=== PATIENT | female | born 1995 | race Caucasian/White ===

== ENCOUNTER 2016-12-25 05:52 | Emergency (ER) | payer OTHER ==
[~2016-12-25] VITALS: Ht 177.8 cm; Wt 90.8 kg
[~2016-12-25 05:52] MED LIST: TRAM50TA PO
[2016-12-25 05:54] VITALS: BP 135/75; PULSE 98; RESP 18; TEMP 99; O2SAT 99
[2016-12-25 06:10] LABS: BLOOD, URINE NEG (NEG); GLUCOSE,URINE NEG (NEG); KETONE, URINE NEG (NEG); NITRITE,URINE NEG (NEG)
[2016-12-25 06:17] LABS: RBC, URINE 0-2 /hpf (0-3); URINE COLOR YELLOW (YELLW/STRAW)
[2016-12-25 06:18] LABS: COMMENT (UR) CULT NOT INDICATED; CULTURE IF INDICATED CULT NOT INDICATED
--- NOTE | 2016-12-25 06:23 | PD ---
HPI Chief Complaint: Abdominal Pain Time Seen by Provider: 05:59 Travel History International Travel<30 days: No Contact w/Intl Traveler<30days: No Traveled to known affect area: No History of Present Illness HPI The patient is a 21-year-old female, G3, P3, A0 who complains of left pelvic pain since last night. She denies any nausea, vomiting or diarrhea. She denies any fever. She denies any dysuria, frequency or urgency. Her last menstrual period was 16 December and she has had irregular periods, this period was extremely light. Her pain is 7/10, constant and a pressure sensation, not sharp pain. It kept her from sleeping tonight. She states she has never had a pain like this before. [facility] Past Medical History Medical History: Denies Significant Hx Diminished Hearing: No Tetanus Vaccination: > 5 Years Influenza Vaccination: Yes ?: Not LMP: 12/16/16 : 2 Para: 2 Past Surgical History Surgical History: No Previous Surgery Social History Alcohol Use: No Tobacco Use: No Substance Use: Yes Allergies-Medications (Allergen,Severity, Reaction): Coded Allergies: No Known Allergies (Unverified Adverse Reaction, Unknown, 12/25/16) Reported Meds & Prescriptions Reported Meds & Active Scripts Active No Active Prescriptions or Reported Medications Review of Systems Except as stated in HPI: all other systems reviewed are Neg Physical Exam Narrative GENERAL: The patient is alert, oriented 3 in minimal apparent distress with her left pelvic pain. SKIN: Focused skin assessment warm/dry. HEAD: Atraumatic. Normocephalic. EYES: Pupils equal and round. No scleral icterus. No injection or drainage. ENT: No nasal bleeding or discharge. Mucous membranes pink and moist. NECK: Trachea midline. No JVD. CARDIOVASCULAR: Regular rate and rhythm. No murmur appreciated. RESPIRATORY: No accessory muscle use. Clear to auscultation. Breath sounds equal bilaterally. GASTROINTESTINAL: Abdomen soft, non-tender, nondistended. Hepatic and splenic margins not palpable. MUSCULOSKELETAL: No obvious deformities. No clubbing. No cyanosis. No edema. NEUROLOGICAL: Awake and alert. No obvious cranial nerve deficits. Motor grossly within normal limits. Normal speech. PSYCHIATRIC: Appropriate mood and affect; insight and judgment normal. GENITOURINARY: Normal external genitalia without lesions or erythema. Vaginal vault without blood but there is an off white drainage. Cervical os was closed , there is considerable ectopy on the cervix with greenish white drainage. There is cervical motion tenderness. Uterus tender and nonenlarged. The right adnexa nontender without masses. The left adnexa is exquisitely tender. Data Data Last Documented VS Vital Signs Date Time Temp Pulse Resp B/P (MAP) Pulse Ox O2 Delivery O2 Flow Rate FiO2 12/25/16 06:45 84 18 117/67 (84) 98 Room Air 12/25/16 05:54 99.0 Orders Orders Urinalysis - C+S If Indicated (12/25/16 05:59) Ed Urine Pregnancytest Poc (12/25/16 05:59) Beta Hcg (Quant/Titer) (12/25/16 06:23) Complete Blood Count With Diff (12/25/16 06:23) Comprehensive Metabolic Panel (12/25/16 06:23) Gc And Chlamydia Pcr (12/25/16 06:23) Wet Prep Profile (12/25/16 06:23) Sodium Chloride 0.9% Flush (Ns Flush) (12/25/16 06:30) Ct Abd/Pel W Iv Contrast(Rout) (12/25/16 06:37) Labs Laboratory Tests Test 12/25/16 06:00 12/25/16 06:36 12/25/16 06:39 Urine Color YELLOW Urine Turbidity CLEAR Urine pH 6.0 Urine Specific [place] 1.022 Urine Protein NEG mg/dL Urine Glucose (UA) NEG mg/dL Urine Ketones NEG mg/dL Urine Occult Blood NEG Urine Nitrite NEG Urine Bilirubin NEG Urine Leukocyte Esterase TRACE Urine RBC 0-2 /hpf Urine WBC 3-5 /hpf Urine Squamous Epithelial Cells 6-8 /hpf Urine Bacteria NONE /hpf Microscopic Urinalysis Comment CULT NOT INDICATED Clue Cells (Wet Prep) NONE SEEN Vaginal Trichomonas (Wet Prep) NONE SEEN Vaginal Yeast (Wet Prep) NONE SEEN White Blood Count 12.3 TH/MM3 Red Blood Count 5.31 MIL/MM3 Hemoglobin 14.5 GM/DL Hematocrit 43.6 % Mean Corpuscular Volume 82.1 FL Mean Corpuscular Hemoglobin 27.2 PG Mean Corpuscular Hemoglobin Concent 33.2 % Red Cell Distribution Width 11.7 % Platelet Count 269 TH/MM3 Mean Platelet Volume 8.8 FL Neutrophils (%) (Auto) 77.4 % Lymphocytes (%) (Auto) 13.9 % Monocytes (%) (Auto) 5.9 % Eosinophils (%) (Auto) 1.3 % Basophils (%) (Auto) 1.5 % Neutrophils # (Auto) 9.5 TH/MM3 Lymphocytes # (Auto) 1.7 TH/MM3 Monocytes # (Auto) 0.7 TH/MM3 Eosinophils # (Auto) 0.2 TH/MM3 Basophils # (Auto) 0.2 TH/MM3 CBC Comment DIFF FINAL Differential Comment MDM Medical Decision Making Medical Screen Exam Complete: Yes Emergency Medical Condition: Yes Medical Record Reviewed: Yes Interpretation(s) The urine shows trace leukocyte Estrace but is otherwise normal and culture is not indicated. Differential Diagnosis Ectopic , ovarian cyst, torsion ovary, endometriosis, diverticulitis, urinary tract infection Narrative Course It is now 0655 and the patient is transferred to Dr. Carlson. Scripts No Active Prescriptions or Reported Meds Kevin Vasquez MD Dec 25, 2016 06:22
[2016-12-25] MEDS ORDERED: SODIUM CHLORIDE 0.9% FLUSH 10 ML FLUSH IVF PRN (06:30)
[2016-12-25 06:45] VITALS: BP 117/67; PULSE 84; RESP 18; O2SAT 98
[2016-12-25 06:52] LABS: AUTOMATED NEUTROPHIL # 9.5 TH/MM3 (1.8-7.7); BASOPHIL # 0.2 TH/MM3 (0-0.2); BASOPHIL % 1.5 % (0.0-2.0); EOSINOPHIL # 0.2 TH/MM3 (0-0.4); EOSINOPHIL % 1.3 % (0.0-4.0); HEMATOCRIT 43.6 % (35.0-46.0); HEMO FLAGS DIFF FINAL; LYMPH % 13.9 % (9.0-44.0); LYMPHOCYTE # 1.7 TH/MM3 (1.0-4.8); MEAN CELL VOLUME 82.1 FL (80.0-100.0); MEAN CORPUSCULAR HEMOGLOBIN 27.2 PG (27.0-34.0); MEAN CORPUSCULAR HGB CONC 33.2 % (32.0-36.0); MONO % 5.9 % (0.0-8.0); NEUT % 77.4 % (16.0-70.0); PLATELET COUNT 269 TH/MM3 (150-450); RED BLOOD COUNT 5.31 MIL/MM3 (4.00-5.30); RED CELL DISTRIBUTION WIDTH 11.7 % (11.6-17.2); WHITE BLOOD COUNT 12.3 TH/MM3 (4.0-11.0)
[2016-12-25 06:55] VITALS: BP 119/69; PULSE 87; RESP 18; TEMP 98.9; O2SAT 99
[2016-12-25 07:00] LABS: CHLORIDE 103 MEQ/L (98-107); POTASSIUM 3.9 MEQ/L (3.5-5.1); SODIUM (NA) 138 MEQ/L (136-145)
[2016-12-25] MEDS ORDERED: KETOROLAC TROMETHAMINE 30 MG/ML (IVP) VIAL IV PUSH ONE (07:00)
[2016-12-25 07:03] LABS: ANION GAP 7 MEQ/L (5-15); BICARBONATE 27.7 MEQ/L (21.0-32.0); BLOOD UREA NITROGEN 13 MG/DL (7-18)
[2016-12-25 07:06] LABS: ALT (GPT) 19 U/L (10-53); AST (GOT) 10 U/L (15-37)
[2016-12-25 07:07] LABS: GLOMERULAR FILTRATION RATE 105 ML/MIN (>89)
[2016-12-25 07:08] LABS: TOTAL BILIRUBIN ADULT 1.3 MG/DL (0.2-1.0)
[2016-12-25 07:09] LABS: ALKALINE PHOSPHATASE 107 U/L (45-117)
[2016-12-25 07:11] LABS: BETA HCG QUANT LESS THAN 1 MIU/ML (0-5)
[2016-12-25] MEDS ORDERED: IOHEXOL 350 MG/ML 10 ML VIAL (for RAD DIAG) IVCONTRAST ONE (07:16)
--- NOTE | 2016-12-25 07:20 | PD ---
Data Data Last Documented VS Vital Signs Date Time Temp Pulse Resp B/P (MAP) Pulse Ox O2 Delivery O2 Flow Rate FiO2 12/25/16 09:04 78 18 118/67 (84) 99 Room Air 12/25/16 06:55 98.9 Orders Orders Urinalysis - C+S If Indicated (12/25/16 05:59) Ed Urine Pregnancytest Poc (12/25/16 05:59) Beta Hcg (Quant/Titer) (12/25/16 06:23) Complete Blood Count With Diff (12/25/16 06:23) Comprehensive Metabolic Panel (12/25/16 06:23) Gc And Chlamydia Pcr (12/25/16 06:23) Wet Prep Profile (12/25/16 06:23) Sodium Chloride 0.9% Flush (Ns Flush) (12/25/16 06:30) Ct Abd/Pel W Iv Contrast(Rout) (12/25/16 06:37) Ketorolac Inj (Toradol Inj) (12/25/16 07:00) Iohexol 350 Inj (Omnipaque 350 Inj) (12/25/16 07:16) Us Pelvis Comp W Doppler (12/25/16 07:36) Ed Discharge Order (12/25/16 09:24) Labs Laboratory Tests Test 12/25/16 06:00 12/25/16 06:36 12/25/16 06:39 Urine Color YELLOW Urine Turbidity CLEAR Urine pH 6.0 Urine Specific [place] 1.022 Urine Protein NEG mg/dL Urine Glucose (UA) NEG mg/dL Urine Ketones NEG mg/dL Urine Occult Blood NEG Urine Nitrite NEG Urine Bilirubin NEG Urine Leukocyte Esterase TRACE Urine RBC 0-2 /hpf Urine WBC 3-5 /hpf Urine Squamous Epithelial Cells 6-8 /hpf Urine Bacteria NONE /hpf Microscopic Urinalysis Comment CULT NOT INDICATED Clue Cells (Wet Prep) NONE SEEN Vaginal Trichomonas (Wet Prep) NONE SEEN Vaginal Yeast (Wet Prep) NONE SEEN White Blood Count 12.3 TH/MM3 Red Blood Count 5.31 MIL/MM3 Hemoglobin 14.5 GM/DL Hematocrit 43.6 % Mean Corpuscular Volume 82.1 FL Mean Corpuscular Hemoglobin 27.2 PG Mean Corpuscular Hemoglobin Concent 33.2 % Red Cell Distribution Width 11.7 % Platelet Count 269 TH/MM3 Mean Platelet Volume 8.8 FL Neutrophils (%) (Auto) 77.4 % Lymphocytes (%) (Auto) 13.9 % Monocytes (%) (Auto) 5.9 % Eosinophils (%) (Auto) 1.3 % Basophils (%) (Auto) 1.5 % Neutrophils # (Auto) 9.5 TH/MM3 Lymphocytes # (Auto) 1.7 TH/MM3 Monocytes # (Auto) 0.7 TH/MM3 Eosinophils # (Auto) 0.2 TH/MM3 Basophils # (Auto) 0.2 TH/MM3 CBC Comment DIFF FINAL Differential Comment Blood Urea Nitrogen 13 MG/DL Creatinine 0.69 MG/DL Random Glucose 92 MG/DL Total Protein 8.3 GM/DL Albumin 4.2 GM/DL Calcium Level 8.6 MG/DL Alkaline Phosphatase 107 U/L Aspartate Amino Transf (AST/SGOT) 10 U/L Alanine Aminotransferase (ALT/SGPT) 19 U/L Total Bilirubin 1.3 MG/DL Sodium Level 138 MEQ/L Potassium Level 3.9 MEQ/L Chloride Level 103 MEQ/L Carbon Dioxide Level 27.7 MEQ/L Anion Gap 7 MEQ/L Estimat Glomerular Filtration Rate 105 ML/MIN Human Chorionic Gonadotropin, Quant LESS THAN 1 MIU/ML MDM Medical Record Reviewed: Yes Supervised Visit with KATHERYN: No Narrative Course CBC & BMP Diagram 12/25/16 06:39 Total Protein 8.3 H, Albumin 4.2, Calcium Level 8.6, Alkaline Phosphatase 107, Aspartate Amino Transf (AST/SGOT) 10 L, Alanine Aminotransferase (ALT/SGPT) 19, Total Bilirubin 1.3 H Beta < 1 UA: no UTI Wet prep: negative Last Impressions Abdomen/Pelvis CT 12/25/16 0637 Signed Impressions: Service Date/Time: Tuesday, December 25, 2016 07:00 - CONCLUSION: 1. No acute CT findings in the abdomen or pelvis. 2. Normal appendix. 3. Small amount of endometrial fluid with likely small bilateral ovarian cysts. This is within normal limits for patient's age. Luan Francisco MD Pt has LLQ pain. Blood work and urine are unremarkable. CT unremarkable. Pelvic ultrasound added on given complaints of persistent pain, reportedly severe. [id number] resting on bed, using smart phone, results discussed (unremarkable work up with torsion less likely and reviewed of EMR reveal one prior visit for similar complaint) and pt reassured. Dx likely ruptured ovarian cyst or non- specific otherwise. Return precautions discussed. Pt verbalized understanding. Diagnosis Primary Impression: Pelvic pain in female Additional Impression: Ruptured cyst of ovary Referrals: Renae Shah MD call for appointment Additional Instruction: You have a choice when it comes to health care, and we are glad that you chose [facility]. Hopefully, we have met your expectations on today's visit. You are welcome to return to [facility] at any time, as we are committed to meeting the health care needs of our community. PLEASE CALL DR SHAH OF OBSTETRICS/GYNECOLOGY IF YOU HAVE PERSISTENT SYMPTOMS. ADDITIONAL TESTING MAY BE REQUIRED IN ORDER TO TREAT. TAKE MOTRIN NEEDED FOR PAIN, 600MG EVERY 6-8 HOURS. Med/Other Pt SpecificInfo: No Change to Meds Scripts No Active Prescriptions or Reported Meds Disposition: 01 DISCHARGE HOME Condition: Femi Omalley MD Dec 25, 2016 07:20
--- NOTE | 2016-12-25 07:21 | RADRPT ---
EXAM DATE/TIME: 12/25/2016 07:00 [facility] COMPARISON: No previous studies available for comparison. INDICATIONS : Left lower pelvic pain for 12 hours. IV CONTRAST: 96 cc Omnipaque 350 (iohexol) IV ORAL CONTRAST: No oral contrast ingested. RADIATION DOSE: 13.55 CTDIvol (mGy) MEDICAL HISTORY : None SURGICAL HISTORY : None. ENCOUNTER: Initial ACUITY: 1 day PAIN SCALE: 7/10 LOCATION: Left lower quadrant TECHNIQUE: Volumetric scanning of the abdomen and pelvis was performed. Using automated exposure control and ad justment of the mA and/or kV according to patient size, radiation dose was kept as low as reasonably achievable to obtain optimal diagnostic quality images. DICOM format image data is available electro nically for review and comparison. FINDINGS: LOWER LUNGS: The visualized lower lungs are clear. LIVER: Homogeneous density without lesion. There is no dilation of the biliary tree. No calcified gallston es. SPLEEN: Normal size without lesion. PANCREAS: Within normal limits. KIDNEYS: Normal in size and shape. There is no mass, stone or hydronephrosis. ADRENAL GLANDS: Within normal limits. VASCULAR: There is no aortic aneurysm. BOWEL/MESENTERY: Appendix is visualized and normal in appearance. Bowel appears grossly unremarkable without evidence for obstruction. The no free fluid or free air. No focal drainable fluid collections. ABDOMINAL WALL: Within normal limits. RETROPERITONEUM: There is no lymphadenopathy. BLADDER: No wall thickening or mass. REPRODUCTIVE: Endometrial fluid with likely small bilateral ovarian cysts. INGUINAL: There is no lymphadenopathy or hernia. MUSCULOSKELETAL: Within normal limits for patient age. CONCLUSION: 1. No acute CT findings in the abdomen or pelvis. 2. Normal appendix. 3. Small amount of endometrial fluid with likely small bilateral ovarian cysts. This is within normal limits for patient's age. Luan Francisco MD on December 25, 2016 at 7:13 Board Certified Radiologist. This report was verified electronically.
[2016-12-25 09:04] VITALS: BP 118/67; PULSE 78; RESP 18; O2SAT 99
--- NOTE | 2016-12-25 09:17 | RADRPT ---
EXAM DATE/TIME: 12/25/2016 08:40 [facility] COMPARISON: No previous studies available for comparison. INDICATIONS : Pelvic pain. MEDICAL HISTORY : Pelvic pain. SURGICAL HISTORY : None. ENCOUNTER: Initial ACUITY: 2 days PAIN SCORE: 3/10 LOCATION: Left pelvis MEASUREMENTS: UTERUS: 9.2 x 4.5 x 6.7 cm ENDOMETRIAL STRIPE: 7 mm RIGHT OVARY: 2.4 x 1.8 x 1.7 cm LEFT OVARY: 4.5 x 2.4 x 2.6 cm FINDINGS: UTERUS: The myometrium has homogeneous echotexture without mass. RIGHT OVARY: Ovary contains no mass or significant cystic lesion. LEFT OVARY: Ovary contains no mass or significant cystic lesion. MISCELLANEOUS: No free fluid. CONCLUSION: 1. Unremarkable pelvic ultrasound exam. Luan Francisco MD on December 25, 2016 at 9:14 Board Certified Radiologist. This report was verified electronically.
[2016-12-25 12:31] LABS: CHLAMYDIA PCR NOT DETECTED (NOT DETECT); NEISSERIA PCR NOT DETECTED (NOT DETECT)
== END 2016-12-25 09:35 | disposition home or self-care (01) ==
LOC: PHED 05:52
DX: R10.2 Pelvic and perineal pain (principal)
CPT/HCPCS: 74177; 76856; 80053; 81001; 84702; 84703; 85025; 87210; 87491; 87591; 93975; 96374; 99285; J1885; Q9967